=== PATIENT | male | born 1940 | race Caucasian/White ===

== ENCOUNTER 2018-02-22 19:04 | Inpatient (IN) | payer MEDICARE, OTHER ==
[~2018-02-22] VITALS: Ht 175.3 cm; Wt 75.4 kg
[2018-02-22 20:50] VITALS: BP 136/82
--- NOTE | 2018-02-22 20:55 | NUR ---
Gil Tavares admitted to room 419-1, with an admitting diagnosis of RLL pna , on 02/22/18 from via EMS, accompanied by staff.GIL TAVARES introduced to surroundings, call light, bed controls, phone, TV, temperature control, lights, meal times, smoking policy, visitor policy, side rail policy, bathrooms and showers. Patient Rights given to patient in the handbook.GIL TAVARES verbalizes understanding that [facility] is not responsible for the loss or damage to any personal effects or valuables that are kept in the patients possession during their hospitalization. The Patient Care Plans were discussed with the pt. GIL TAVARES verbalizes understanding of Interdisciplinary Patient Education. Patient and/or family were informed about the Rapid Response Team and its purpose.
--- NOTE | 2018-02-22 20:56 | NUR ---
Pt has already received his flu vaccine this year.
[2018-02-22] MEDS ORDERED: cefTRIAXone FOR IV USE 1,000 MG in NS (IVPB) 50 ML IV ONE (21:00)
[2018-02-22] MEDS ORDERED: ACETAMINOPHEN 500 MG TAB (TYLENOL) PO PRN (21:15)
[2018-02-22] MEDS: LACTATED RINGERS 1,000 ML IV SCH (22:11)
[2018-02-22] MEDS ORDERED: RT-ALBUTEROL/IPRATROPIUM 3 ML (DUONEB) VIAL INH PRN (23:00)
[2018-02-23] VITALS: BP 117/57
[2018-02-23] MEDS: RT-ALBUTEROL/IPRATROPIUM 3 ML (DUONEB) VIAL INH SCH ×4 (02:48→19:55)
[2018-02-23 04:00] VITALS: BP 108/53
[2018-02-23 04:35] LABS: BASOPHILS % (AUTO) 0 % (0-10); EOSINOPHILS % (AUTO) 0 % (0-10); HEMATOCRIT 39 % (40-54); HEMOGLOBIN 13.2 G/DL (13.3-17.7); LYMPHOCYTES # (AUTO) 0.6 X 10^3 (1.0-4.0); LYMPHOCYTES % (AUTO) 4 % (12-44); MEAN CORPUSCULAR HEMOGLOBIN 30 PG (25-34); MEAN CORPUSCULAR HGB CONC 34 G/DL (32-36); MEAN CORPUSCULAR VOLUME 87 FL (80-99); MONOCYTES # (AUTO) 0.5 X 10^3 (0.0-1.0); MONOCYTES % (AUTO) 4 % (0-12); NEUTROPHILS % (AUTO) 92 % (42-75); PLATELET COUNT 227 10^3/uL (130-400); RED BLOOD COUNT 4.44 10^6/uL (4.35-5.85); RED CELL DISTRIBUTION WIDTH 13.3 % (10.0-14.5); WHITE BLOOD COUNT 15.2 10^3/uL (4.3-11.0)
[2018-02-23] MEDS: LACTATED RINGERS 1,000 ML IV SCH ×4 (05:13→18:55)
[2018-02-23 05:38] LABS: BAND NEUTROPHILS 12 %; LYMPHOCYTES % (MANUAL) 8 %; MONOCYTES % (MANUAL) 2 %; NEUTROPHILS % (MANUAL) 78 %; RBC MORPH NORMAL
[2018-02-23 08:00] VITALS: BP 103/52
[2018-02-23] MEDS ORDERED: LOSA50TA7 PO (11:16)
[2018-02-23] MEDS ORDERED: FINA5TAB6 PO (11:16)
[2018-02-23] MEDS ORDERED: PANT40TA2 PO (11:16)
[2018-02-23] MEDS ORDERED: TAMS0.4C2 PO (11:17)
--- NOTE | 2018-02-23 11:18 | NUR ---
SPOKE TO PATIENT HE GAVE ME A LIST OF HIS MEDICATIONS IT MATCHED THE EXTERNAL MEDICATION HISTORY. STATED HE TOOK HIS MEDICATIONS YESTERDAY.
[2018-02-23 12:00] VITALS: BP 131/75
--- NOTE | 2018-02-23 14:09 | History & Physical-Hospitalist ---
History of Present Illness HPI/Chief Complaint The patient is a 77-year-old white male who was accepted as a transfer to the hospitalist service from [place] emergency room last night. He had apparently been ill for about a week. He had been seen in [place] on e and was given a Z-Kevin. At that time his white count and chest x- ray were negative. He returned last night and reported that he was declining with fever, productive cough and shortness of breath. There was a general malaise. Last night he was found to be febrile. He had complained of sputum and general malaise. His white blood count was 21,300 as compared to normal the week prior history chest x-ray showed a process in the right base. He was given a dose of Zosyn and sent here. He reports he is already feeling better this morning. His white count has fallen to 15,000 with hydration and antibiotics. He is a smoker of many years duration. Date Seen 02/23/18 Time Seen by a Provider: 14:04 Attending Physician Renetta Shaw MD PCP Unknown Referring Physician Date of Admission Feb 22, 2018 at 20:45 Home Medications & Allergies Home Medications Reviewed patient Home Medication Reconciliation performed by pharmacy medication reconciliations food service technician and/or nursing. Patients Allergies have been reviewed. Allergies Allergies Coded Allergies bacitracin (Verified Allergy, Unknown, 02/23/18) neomycin (Verified Allergy, Unknown, 02/23/18) polymyxin B (Verified Allergy, Unknown, 02/23/18) Past Trbgevn-Lobfiw-Tqzsww Hx Past Med/Social Hx: Reviewed Nursing Past Med/Soc Hx Patient Social History Alcohol Use: Rarely Uses Number of Drinks Today: 0 Alcohol Beverage of Choice: Beer Recreational Drug Use: No Smoking Status: Current Everyday Smoker Former Smoker, Quit: Feb 18, 2018 Type Used: Cigarettes Physical Abuse Screen: No Sexual Abuse: No Recent Foreign Travel: No Contact w/other who traveled: No Recent Hopitalizations: No Recent Infectious Disease Expo: No Immunizations Up To Date Pediatric: No Date of Pneumonia Vaccine: Nov 25, 2014 Date of Influenza Vaccine: Nov 25, 2017 Seasonal Allergies Seasonal Allergies: No Past Medical History Genitourinary: Benign Prostatic Hyperpl Gastrointestinal: Hiatal Hernia Cancer: Skin Did You Recieve Any Treatments: No History of Blood Disorders: No Adverse Reaction to Blood White: No Family History Patient reports no known family medical history. Review of Systems Constitutional: see HPI EENTM: other (pressure in his left ear yesterday which has cleared today.) Respiratory: cough, dyspnea on exertion, wheezing Cardiovascular: no symptoms reported Gastrointestinal: no symptoms reported Genitourinary: frequency Musculoskeletal: muscle pain Skin: no symptoms reported Psychiatric/Neurological: No Symptoms Reported Physical Exam Physical Exam Vital Signs Vital Signs - First Documented 02/22/18 02/22/18 02/22/18 20:50 20:55 22:51 Temp 98.8 Pulse 84 Resp 20 B/P (MAP) 136/82 (100) Pulse Ox 94 O2 Delivery Room Air O2 Flow Rate 2.00 FiO2 28 Capillary Refill : Height, Weight, BMI Height: 5'9.00" Weight: 166lbs. 3.0oz. 75.869247ye; 24.5 BMI Method: General Appearance: No Apparent Distress, WD/WN Eyes: Bilateral Eye Normal Inspection, Bilateral Eye Other (drooping of upper lids) HEENT: Normal ENT Inspection Neck: Normal Inspection Respiratory: Rhonci (both bases left greater than right. Breath sounds are somewhat distant.) Cardiovascular: Regular Rate, Rhythm, No Edema, No Gallop Gastrointestinal: Normal Bowel Sounds, No Organomegaly, No Pulsatile Mass, Non Tender, Soft Back: Normal Inspection Extremity: Normal Capillary Refill, Normal Inspection, Normal Range of Motion, Non Tender, No Calf Tenderness, No Pedal Edema Neurologic/Psychiatric: Alert, Oriented x3, No Motor/Sensory Deficits, Normal Mood/Affect Skin: Normal Color, Warm/Dry Lymphatic: No Adenopathy Results Results/Procedures Labs Laboratory Tests 02/23/18 04:21 Patient resulted labs reviewed. Assessment/Plan Admission Diagnosis Right lower lobe pneumonia. 2.tobaccoism. 3.hypertension Admission Status: Inpatient Order (span 2 midnights) Reason for Inpatient Admission: Pneumonia with treatment requiring more than 2 midnights. Failed outpatient therapy. Clinical Quality Measures DVT/VTE Risk/Contraindication: Risk Factor Score Per Nursin RFS Level Per Nursing on Admit: 4+=Very High RENETTA SHAW MD Feb 23, 2018 14:09
--- NOTE | 2018-02-23 14:35 | Diagnostic Imaging Report ---
Indication: Right-sided chest pain. Upright chest shows normal heart size and vascularity. The lungs are clear. There is no effusion or pneumothorax. There is no bony abnormality. Impression: No acute abnormality is seen. Dictated by: Dictated on workstation # [id number]
[2018-02-23 16:12] VITALS: BP 135/74
[2018-02-23 20:15] VITALS: BP 142/72
[2018-02-23] MEDS ORDERED: cefTRIAXone FOR IV USE 1,000 MG in NS (IVPB) 50 ML IV SCH (21:00)
[2018-02-24 00:02] VITALS: BP 147/76
[2018-02-24] MEDS: RT-ALBUTEROL/IPRATROPIUM 3 ML (DUONEB) VIAL INH SCH ×2 (01:36→08:54)
[2018-02-24 04:04] VITALS: BP 131/73
[2018-02-24 08:00] VITALS: BP 105/69
[2018-02-24] MEDS ORDERED: CEFD300C3 PO (09:14)
--- NOTE | 2018-02-24 09:18 | Discharge Inst-Simple/Standard ---
Discharge Inst-Standard Discharge Medications New, Converted or Re-Newed RX: Transmitted to Pharmacy Patient Instructions/Follow Up Plan of Care/Instructions/FU: Please continue to take your medications as written even if you begin to feel better. You can take a probiotic which is available over the counter to help prevent diarrhea associated with antibiotic use. Please follow up with your PCP in the next week to follow up this hospital stay. Activity as Tolerated: Yes Discharge Diet: No Restrictions Return to The Hospital For: Shortness of breath, cough, fever, fatigue, chest pain, confusion, if you feel you are getting worse. CHAPIN HORNE MD Feb 24, 2018 09:18
--- NOTE | 2018-02-24 09:27 | Discharge Summary-Hospitalist ---
Diagnosis/Chief Complaint Date of Admission Feb 22, 2018 at 20:45 Date of Discharge Discharge Date: Feb 24, 2018 Admission Diagnosis Right lower lobe pneumonia. 2.tobaccoism. 3.hypertension Discharge Diagnosis CAP- RLL Discharge Summary Discharge Physical Exam Allergies: Coded Allergies: bacitracin (Verified Allergy, Unknown, 02/23/18) neomycin (Verified Allergy, Unknown, 02/23/18) polymyxin B (Verified Allergy, Unknown, 02/23/18) Vitals & I&Os Vital Signs Date Time Temp Pulse Resp B/P (MAP) Pulse Ox O2 Delivery O2 Flow Rate FiO2 02/24/18 04:04 98.6 61 20 131/73 (92) 95 Room Air 02/24/18 01:36 3.00 02/22/18 22:51 28 General Appearance: No Apparent Distress, WD/WN Respiratory: Lungs Clear, No Accessory Muscle Use, No Respiratory Distress Cardiovascular: Regular Rate, Rhythm, No Murmur Neurologic/Psychiatric: Alert, Oriented x3 Hospital Course Pt was admitted for right lower lobe pneumonia that failed outpatient management. He was treated with a Z-pack and continued to worsen and returned to the ER at [facility] for evaluation where he was found to have an elevated leukocytosis and was transferred here for further management. He was treated with Rocephin and responded well and was requesting discharge home on day of discharge. Omnicef was sent for antibiotics to complete course. He is to follow up with his PCP in 1 week to follow up this hospital stay. Labs (last 24 hrs) Patient resulted labs reviewed. Discussion & Recommendations Discharge Planning: >30 minutes discharge planning Discharge Home Medications: Active Scripts Active Cefdinir 300 Mg Capsule 300 Mg PO BID Reported Tamsulosin HCl 0.4 Mg Cap.er.24h 0.4 Mg PO DAILY Daily until stone passage Finasteride 5 Mg Tablet 5 Mg PO DAILY Protonix (Pantoprazole Sodium) 40 Mg Tablet.dr 40 Mg PO DAILY Losartan Potassium 50 Mg Tablet 50 Mg PO DAILY Instructions to patient/family Please see electronic discharge instructions given to patient. Clinical Quality Measures DVT/VTE Risk/Contraindication: Risk Factor Score Per Nursin RFS Level Per Nursing on Admit: 4+=Very High Copy Copies To 1: CHIP REILLY MD, KATELYN M MD Feb 24, 2018 09:27
[2018-02-24 11:05] VITALS: BP 105/69
== END 2018-02-24 11:05 | disposition home or self-care (01) | DRG 195 ==
LOC: 4TH 20:45
PROVIDERS: ADMIT Internal Medicine; ATTEND Internal Medicine
DX: J18.1 Lobar pneumonia, unspecified organism (principal); I10 Essential (primary) hypertension; F17.210 Nicotine dependence, cigarettes, uncomplicated; N40.1 Benign prostatic hyperplasia with lower urinary tract symptoms; R35.0 Frequency of micturition
CPT/HCPCS: 36415; 71045; 85007; 85027; 94640; 94760